=== PATIENT | male | born 1970 | race African-American/Black ===

== ENCOUNTER 2024-08-09 20:57 | Emergency (ER) | payer OTHER ==
[2024-08-09 21:10] VITALS: BP 125/77; PULSE 97; RESP 18; TEMP 99.1; BMI 29.7
[2024-08-09] MEDS ORDERED: DIPHTH,PERTUSS(ACELL),TET 0.5 ML DISP.SYRIN IM ONE (22:02)
[2024-08-09] MEDS: DIPHTH,PERTUSS(ACELL),TET 0.5 ML DISP.SYRIN IM ONE (22:05)
[2024-08-09 22:09] LABS: ABSOLUTE IMMATURE GRANULOCYTES 0.02 x10^3/uL (0.0-0.031); BASOPHILS # 0.02 x10^3/uL (0.01-0.08); EOSINOPHIL % 0.6 % (0.8-7.0); EOSINOPHILS # 0.05 x10^3/uL (0.04-0.54); HEMATOCRIT 41.3 % (40.1-51.0); HEMOGLOBIN 14.2 g/dL (13.7-17.5); MCHC 34.4 g/dl (32.3-36.5); MEAN CELL VOLUME 77.2 fl (79.0-92.2); MEAN PLT VOLUME 9.4 fl (9.4-12.4); MONOCYTE # 0.53 x10^3/uL (0.30-0.82); MONOCYTE % 6.7 % (5.3-12.2); PLATELET COUNT 304 x10^3/uL (163-337); RDW 12.5 % (12.2-16.1)
[2024-08-09 22:32] LABS: POTASSIUM 3.9 mmol/L (3.5-5.1)
[2024-08-09 22:34] LABS: CALCIUM 8.9 mg/dL (8.5-10.1)
[2024-08-09 22:35] LABS: ALBUMIN 3.7 g/dl (3.4-5.0); BLOOD UREA NITROGEN 11.2 mg/dL (7-18); MAGNESIUM 2.1 mg/dL (1.8-2.4)
[2024-08-09 22:38] LABS: PHOSPHOROUS 4.1 mg/dL (2.5-4.9)
[2024-08-09 22:39] LABS: BILIRUBIN,TOTAL 0.3 mg/dL (0.2-1)
== END 2024-08-10 00:34 | disposition left against medical advice (07) ==
LOC: JER 20:57
PROC: 3E0234Z Introduction of Serum, Toxoid and Vaccine into Muscle, Percutaneous Approach (ICD-10-PCS; principal; 2024-08-09)
DX: S01.311A Laceration without foreign body of right ear, initial encounter (principal); R55 Syncope and collapse; R51.9 Headache, unspecified; Z23 Encounter for immunization; W18.30XA Fall on same level, unspecified, initial encounter; Y99.0 Civilian activity done for income or pay
CPT/HCPCS: 36415; 70450-TC; 72125-TC; 80053; 83735; 84100; 84484; 85025; 90471; 90715; 93005; 93010; 99285-25